=== PATIENT | male | born 1980 | race African-American/Black ===

== ENCOUNTER 2018-11-23 09:26 | Inpatient (IN) | payer SELFPAY | END 2018-11-23 23:00 | disposition left against medical advice (07) | LOC: YASAS 09:26 → Y3N 11:46 ==

== ENCOUNTER 2018-11-23 19:59 | Emergency (ER) | payer SELFPAY | END 2018-11-23 21:12 | disposition left against medical advice (07) | LOC: JER 19:59 ==

== ENCOUNTER 2021-05-31 13:32 | Inpatient (IN) | payer OTHER ==
[2021-05-31] MEDS ORDERED: MAG HYDROX/AL HYDROX/SIMETH 30 ML UNIT-DOSE CUP PO PRN (14:01)
[2021-05-31] MEDS ORDERED: IBUPROFEN 400 MG TABLET (FP) PO PRN (14:01)
[2021-05-31] MEDS ORDERED: MAGNESIUM CITRATE 300 ML BOTTLE PO PRN (14:01)
[2021-05-31] MEDS ORDERED: MAGNESIUM HYDROX 2400MG/30ML ORAL SUSPENSION 30 ML CUP PO PRN (14:01)
[2021-05-31] MEDS ORDERED: BISMUTH SUBSALICYLATE 524 MG/30 ML PO PRN (14:01)
[2021-05-31] MEDS ORDERED: ACETAMINOPHEN 325 MG TABLET (FP) PO PRN ×2 (14:01)
[2021-05-31] MEDS ORDERED: LOPERAMIDE HCL 2 MG CAPSULE PO PRN (14:01)
[2021-05-31] MEDS ORDERED: MENTHOL/PHENOL 1 EACH UD MM PRN (14:01)
[2021-05-31] MEDS ORDERED: ONDANSETRON *ODT* 4 MG TABLET SL PRN (14:01)
[2021-05-31 15:32] VITALS: BMI 21.8
[2021-05-31] MEDS ORDERED: methaDONE HCL 10 MG TABLET (FOR DETOX USE ONLY) PO ONE ×2 (16:15→22:00)
[2021-05-31] MEDS ORDERED: hydrOXYzine PAMOATE 25 MG CAPSULE (FP) PO SCH (18:00)
[2021-05-31] MEDS ORDERED: NITROGLYCERIN SUBLINGUAL 1/200 0.3 MG BTL SL PRN (21:29)
[2021-05-31] MEDS: hydrOXYzine PAMOATE 25 MG CAPSULE (FP) PO PRN (22:50)
[2021-05-31] MEDS: BACITRACIN 0.9 GM PACKET TP SCH (22:50)
[2021-05-31] MEDS: THIAMINE HCL 100 MG TABLET (FP) PO SCH (22:50)
[2021-05-31] MEDS: chlordiazePOXIDE HCL 25 MG CAPSULE PO SCH ×2 (22:50→23:24)
[2021-05-31] MEDS: METHOCARBAMOL 500 MG TABLET PO PRN (22:50)
[2021-05-31] MEDS: LIDOCAINE PATCH REMOVAL MC SCH (22:52)
[2021-05-31] MEDS: TOLNAFTATE 1% CREAM 15 GM TUBE TP SCH (22:53)
[2021-05-31] MEDS: NICOTINE 14 MG/24 HOURS TOPICAL PATCH TD SCH (22:53)
[2021-05-31] MEDS: MELATONIN 5 MG TABLETS PO SCH (22:53)
[2021-05-31] MEDS: PRENATAL VITAMINS W/ FOLIC ACID TABLET (FP) PO SCH (22:53)
[2021-06-01] MEDS: chlordiazePOXIDE HCL 25 MG CAPSULE PO PRN ×2 (00:57→19:04)
[2021-06-01] MEDS: NICOTINE 10 MG CARTRIDGE (INHALER) IH PRN ×2 (00:58→14:48)
[2021-06-01] MEDS: chlordiazePOXIDE HCL 25 MG CAPSULE PO SCH ×5 (01:25→23:00)
[2021-06-01] MEDS: cloNIDine HCL 0.1 MG TABLET PO PRN ×2 (02:40→16:55)
[2021-06-01] MEDS: METHOCARBAMOL 500 MG TABLET PO PRN ×3 (05:04→23:05)
[2021-06-01] MEDS: ACETAMINOPHEN 325 MG TABLET (FP) PO PRN ×2 (05:16→17:01)
[2021-06-01] MEDS: PRAMOXINE HCL 1% (SARNA SENSITIVE) 222 ML BOTTLE TP SCH ×3 (07:37→23:08)
[2021-06-01] MEDS ORDERED: methaDONE HCL 10 MG TABLET (FOR DETOX USE ONLY) ONE (09:28)
[2021-06-01] MEDS: PRENATAL VITAMINS W/ FOLIC ACID TABLET (FP) PO SCH (09:29)
[2021-06-01] MEDS: NICOTINE 14 MG/24 HOURS TOPICAL PATCH TD SCH (09:30)
[2021-06-01] MEDS: LIDOCAINE 5% TOPICAL PATCH TP SCH (09:30)
[2021-06-01] MEDS: hydrOXYzine PAMOATE 25 MG CAPSULE (FP) PO PRN (09:31)
[2021-06-01] MEDS: TOLNAFTATE 1% CREAM 15 GM TUBE TP SCH ×2 (09:32→23:08)
[2021-06-01] MEDS: hydrOXYzine PAMOATE 50 MG CAPSULE (FP) PO PRN ×2 (10:59→18:59)
[2021-06-01] MEDS ORDERED: METHOCARBAMOL 750 MG TABLET PO PRN (12:00)
[2021-06-01] MEDS: BACITRACIN 0.9 GM PACKET TP SCH ×2 (14:10→23:01)
[2021-06-01] MEDS ORDERED: traZODone HCL 50 MG TABLET (FP) PO PRN (21:00)
[2021-06-01] MEDS: LIDOCAINE PATCH REMOVAL MC SCH (23:02)
[2021-06-01] MEDS: MELATONIN 5 MG TABLETS PO SCH (23:04)
[2021-06-01] MEDS: THIAMINE HCL 100 MG TABLET (FP) PO SCH (23:09)
[2021-06-02] MEDS: chlordiazePOXIDE HCL 25 MG CAPSULE PO PRN (03:32)
[2021-06-02] MEDS: METHOCARBAMOL 500 MG TABLET PO PRN ×3 (03:33→18:28)
[2021-06-02] MEDS: chlordiazePOXIDE HCL 25 MG CAPSULE PO SCH ×4 (05:37→23:21)
[2021-06-02] MEDS: ACETAMINOPHEN 325 MG TABLET (FP) PO PRN (05:41)
[2021-06-02] MEDS ORDERED: methaDONE HCL 10 MG TABLET (FOR DETOX USE ONLY) PO ONE ×3 (10:00→10:28)
[2021-06-02] MEDS: hydrOXYzine PAMOATE 50 MG CAPSULE (FP) PO PRN (10:08)
[2021-06-02] MEDS: LIDOCAINE 5% TOPICAL PATCH TP SCH (10:08)
[2021-06-02] MEDS: PRENATAL VITAMINS W/ FOLIC ACID TABLET (FP) PO SCH (10:09)
[2021-06-02] MEDS: NICOTINE 14 MG/24 HOURS TOPICAL PATCH TD SCH (10:10)
[2021-06-02] MEDS: BACITRACIN 0.9 GM PACKET TP SCH ×2 (10:10→23:18)
[2021-06-02] MEDS: TOLNAFTATE 1% CREAM 15 GM TUBE TP SCH ×2 (11:58→23:23)
[2021-06-02] MEDS: PRAMOXINE HCL 1% (SARNA SENSITIVE) 222 ML BOTTLE TP SCH ×2 (11:58→23:22)
[2021-06-02 13:31] VITALS: TEMP 97.7
[2021-06-02 17:44] VITALS: PULSE 95
[2021-06-02] MEDS: NICOTINE 10 MG CARTRIDGE (INHALER) IH PRN (18:30)
[2021-06-02 19:06] VITALS: BP 128/80
[2021-06-02] MEDS: LIDOCAINE PATCH REMOVAL MC SCH (23:22)
[2021-06-02] MEDS: MELATONIN 5 MG TABLETS PO SCH (23:22)
[2021-06-02] MEDS: THIAMINE HCL 100 MG TABLET (FP) PO SCH (23:35)
[2021-06-03] MEDS ORDERED: chlordiazePOXIDE HCL 10 MG CAPSULE PO PRN
[2021-06-03] MEDS ORDERED: chlordiazePOXIDE HCL 10 MG CAPSULE PO SCH (05:00)
[2021-06-04] MEDS ORDERED: chlordiazePOXIDE HCL 10 MG CAPSULE PO SCH (05:00)
[2021-06-04] MEDS ORDERED: methaDONE HCL 10 MG TABLET (FOR DETOX USE ONLY) PO ONE (10:00)
[2021-06-05] MEDS ORDERED: chlordiazePOXIDE HCL 10 MG CAPSULE PO ONE (05:00)
== END 2021-06-02 21:25 | disposition short-term general hospital (02) | DRG 773 ==
LOC: YASAS 13:32 → Y6N 18:46
PROVIDERS: ADMIT Allergy & Immunology; ATTEND Allergy & Immunology
PROC: HZ2ZZZZ Detoxification Services for Substance Abuse Treatment (ICD-10-PCS; principal; 2021-05-31)
DX: F11.23 Opioid dependence with withdrawal (principal); F10.230 Alcohol dependence with withdrawal, uncomplicated; F14.20 Cocaine dependence, uncomplicated; F17.210 Nicotine dependence, cigarettes, uncomplicated; F20.9 Schizophrenia, unspecified; F32.A Depression, unspecified; K62.5 Hemorrhage of anus and rectum; M54.50 Low back pain, unspecified; G89.29 Other chronic pain; B35.3 Tinea pedis; Z95.5 Presence of coronary angioplasty implant and graft; Z79.02 Long term (current) use of antithrombotics/antiplatelets; Z88.6 Allergy status to analgesic agent; Z88.8 Allergy status to other drugs, medicaments and biological substances
CPT/HCPCS: 93005; 93010; C9803-CS; J0735; U0003; U0005

== ENCOUNTER 2021-06-03 09:24 | Emergency (ER) | payer OTHER | END 2021-06-03 10:14 | disposition left against medical advice (07) | LOC: JER 09:24 | DX: M54.50 Low back pain, unspecified (principal) | CPT/HCPCS: 99281-25 ==

== ENCOUNTER 2021-07-16 12:09 | Inpatient (IN) | payer OTHER ==
[2021-07-16] MEDS ORDERED: DICYCLOMINE HCL 10 MG CAPSULE PO PRN (12:44)
[2021-07-16] MEDS ORDERED: IBUPROFEN 400 MG TABLET (FP) PO PRN (12:44)
[2021-07-16] MEDS ORDERED: MAG HYDROX/AL HYDROX/SIMETH 30 ML UNIT-DOSE CUP PO PRN (12:44)
[2021-07-16] MEDS ORDERED: BISMUTH SUBSALICYLATE 524 MG/30 ML PO PRN (12:44)
[2021-07-16] MEDS ORDERED: ONDANSETRON *ODT* 4 MG TABLET SL PRN (12:44)
[2021-07-16] MEDS ORDERED: cloNIDine HCL 0.1 MG TABLET PO PRN (12:44)
[2021-07-16] MEDS ORDERED: chlordiazePOXIDE HCL 25 MG CAPSULE PO PRN (12:44)
[2021-07-16] MEDS ORDERED: ACETAMINOPHEN 325 MG TABLET (FP) PO PRN ×2 (12:44)
[2021-07-16] MEDS ORDERED: MAGNESIUM CITRATE 300 ML BOTTLE PO PRN (12:44)
[2021-07-16] MEDS ORDERED: NICOTINE 10 MG CARTRIDGE (INHALER) IH PRN (12:44)
[2021-07-16] MEDS ORDERED: LOPERAMIDE HCL 2 MG CAPSULE PO PRN (12:44)
[2021-07-16] MEDS ORDERED: MAGNESIUM HYDROX 2400MG/30ML ORAL SUSPENSION 30 ML CUP PO PRN (12:44)
[2021-07-16] MEDS ORDERED: BENZOCAINE/MENTHOL (CHLORASEPTIC ) LOZENGE MM PRN (12:44)
[2021-07-16] MEDS ORDERED: diazePAM 2 MG TABLET PO PRN (12:50)
[2021-07-16] MEDS ORDERED: methaDONE HCL 10 MG TABLET (FOR DETOX USE ONLY) PO ONE ×2 (13:30→16:00)
[2021-07-16 13:56] VITALS: BMI 23.1
[2021-07-16] MEDS ORDERED: hydrOXYzine PAMOATE 25 MG CAPSULE (FP) PO ONE (14:45)
[2021-07-16] MEDS: hydrOXYzine PAMOATE 25 MG CAPSULE (FP) PO SCH ×2 (14:48→17:03)
[2021-07-16 15:08] LABS: CALCIUM 8.7 mg/dL (8.5-10.1)
[2021-07-16 15:09] LABS: ALBUMIN 3.6 g/dl (3.4-5.0); BLOOD UREA NITROGEN 8.3 mg/dL (7-18)
[2021-07-16 15:13] LABS: BILIRUBIN,TOTAL 0.2 mg/dL (0.2-1); HEMATOCRIT 26.9 % (35.4-49); HEMOGLOBIN 8.3 GM/dL (11.7-16.9); MCH 21.9 pg (25.7-33.7); MEAN CELL VOLUME 70.5 fl (80-96); MEAN PLT VOLUME 7.6 fl (7.5-11.1); PLATELET COUNT 276 10^3/uL (134-434); RBC 3.81 M/mm3 (4.00-5.60); RDW 22.2 % (11.9-15.9); TOT PROT 7.5 g/dl (6.4-8.2); WHITE BLOOD COUNT 3.7 K/mm3 (4.0-10.0)
[2021-07-16] MEDS: SULFAMETHOXAZOLE/TRIMETHOPRIM 800MG/160MG D.S. TABLET PO SCH (15:34)
[2021-07-16] MEDS: METHOCARBAMOL 500 MG TABLET PO PRN ×2 (15:34→21:05)
[2021-07-16] MEDS: chlordiazePOXIDE HCL 25 MG CAPSULE PO PRN ×2 (15:38→21:05)
[2021-07-16] MEDS: NICOTINE 21 MG/24 HOURS TOPICAL PATCH TD SCH (15:44)
[2021-07-16] MEDS: BACLOFEN 10 MG TABLET (FP) PO SCH (15:45)
[2021-07-16] MEDS: PRENATAL VITAMINS W/ FOLIC ACID TABLET (FP) PO SCH (15:56)
[2021-07-16] MEDS: chlordiazePOXIDE HCL 25 MG CAPSULE PO SCH (17:03)
[2021-07-16] MEDS ORDERED: THIAMINE HCL 100 MG TABLET (FP) PO SCH (22:00)
[2021-07-16] MEDS ORDERED: MELATONIN 5 MG TABLETS PO SCH (22:00)
[2021-07-17] MEDS: hydrOXYzine PAMOATE 25 MG CAPSULE (FP) PO SCH ×4 (00:14→15:01)
[2021-07-17] MEDS: BACLOFEN 10 MG TABLET (FP) PO SCH ×3 (00:14→15:01)
[2021-07-17] MEDS: chlordiazePOXIDE HCL 25 MG CAPSULE PO SCH ×3 (00:15→10:06)
[2021-07-17] MEDS: chlordiazePOXIDE HCL 25 MG CAPSULE PO PRN ×2 (01:00→08:36)
[2021-07-17] MEDS: METHOCARBAMOL 500 MG TABLET PO PRN ×2 (04:04→10:05)
[2021-07-17] MEDS ORDERED: methaDONE HCL 10 MG TABLET (FOR DETOX USE ONLY) ONE (09:43)
[2021-07-17] MEDS: SULFAMETHOXAZOLE/TRIMETHOPRIM 800MG/160MG D.S. TABLET PO SCH (10:05)
[2021-07-17] MEDS: PRENATAL VITAMINS W/ FOLIC ACID TABLET (FP) PO SCH (10:10)
[2021-07-17] MEDS: NICOTINE 21 MG/24 HOURS TOPICAL PATCH TD SCH (10:12)
[2021-07-17 13:18] VITALS: BP 148/83; PULSE 87; TEMP 97
[2021-07-18] MEDS ORDERED: chlordiazePOXIDE HCL 25 MG CAPSULE PO SCH (05:00)
[2021-07-18] MEDS ORDERED: methaDONE HCL 10 MG TABLET (FOR DETOX USE ONLY) PO ONE (10:00)
[2021-07-19] MEDS ORDERED: chlordiazePOXIDE HCL 25 MG CAPSULE PO PRN
[2021-07-19 00:14] LABS: SARS-CoV-2 NAA Not Detected (Not Detected)
[2021-07-19] MEDS ORDERED: chlordiazePOXIDE HCL 10 MG CAPSULE PO SCH (05:00)
[2021-07-20] MEDS ORDERED: chlordiazePOXIDE HCL 10 MG CAPSULE PO SCH (05:00)
[2021-07-20] MEDS ORDERED: methaDONE HCL 10 MG TABLET (FOR DETOX USE ONLY) PO ONE (10:00)
[2021-07-21] MEDS ORDERED: chlordiazePOXIDE HCL 10 MG CAPSULE PO ONE (05:00)
== END 2021-07-17 14:15 | disposition left against medical advice (07) | DRG 770 ==
LOC: YASAS 12:09 → Y3N 14:58
PROVIDERS: ADMIT Allergy & Immunology; ATTEND Surgery
PROC: HZ2ZZZZ Detoxification Services for Substance Abuse Treatment (ICD-10-PCS; principal; 2021-07-16)
DX: F10.230 Alcohol dependence with withdrawal, uncomplicated (principal); F14.20 Cocaine dependence, uncomplicated; F17.210 Nicotine dependence, cigarettes, uncomplicated; D57.1 Sickle-cell disease without crisis; L03.90 Cellulitis, unspecified; Z86.69 Personal history of other diseases of the nervous system and sense organs; Z88.6 Allergy status to analgesic agent; Z88.8 Allergy status to other drugs, medicaments and biological substances; Z95.5 Presence of coronary angioplasty implant and graft
CPT/HCPCS: 36415; 80053; 85027; 86780; 87040; 87811; C9803-CS; J0475; J0735; U0003; U0005

== ENCOUNTER 2021-08-07 12:25 | Inpatient (IN) | payer OTHER ==
[2021-08-07] MEDS ORDERED: MAGNESIUM HYDROX 2400MG/30ML ORAL SUSPENSION 30 ML CUP PO PRN (15:02)
[2021-08-07] MEDS ORDERED: LOPERAMIDE HCL 2 MG CAPSULE PO PRN (15:02)
[2021-08-07] MEDS ORDERED: IBUPROFEN 600 MG TABLET (FP) PO PRN (15:02)
[2021-08-07] MEDS ORDERED: ONDANSETRON *ODT* 4 MG TABLET SL PRN (15:02)
[2021-08-07] MEDS ORDERED: NICOTINE POLACRILEX 4 MG GUM BUC PRN (15:02)
[2021-08-07] MEDS ORDERED: MAGNESIUM CITRATE 300 ML BOTTLE PO PRN (15:02)
[2021-08-07] MEDS ORDERED: IBUPROFEN 400 MG TABLET (FP) PO PRN (15:02)
[2021-08-07] MEDS ORDERED: BISMUTH SUBSALICYLATE 524 MG/30 ML PO PRN (15:02)
[2021-08-07] MEDS ORDERED: NICOTINE 10 MG CARTRIDGE (INHALER) IH PRN (15:02)
[2021-08-07] MEDS ORDERED: BENZOCAINE/MENTHOL (CHLORASEPTIC ) LOZENGE MM PRN (15:02)
[2021-08-07] MEDS ORDERED: ACETAMINOPHEN 325 MG TABLET (FP) PO PRN ×2 (15:02)
[2021-08-07] MEDS ORDERED: DICYCLOMINE HCL 10 MG CAPSULE PO PRN (15:02)
[2021-08-07] MEDS ORDERED: MAG HYDROX/AL HYDROX/SIMETH 30 ML UNIT-DOSE CUP PO PRN (15:02)
[2021-08-07] MEDS ORDERED: diazePAM 5 MG TABLET PO PRN (15:17)
[2021-08-07 15:34] VITALS: BMI 22.6
[2021-08-07] MEDS ORDERED: chlordiazePOXIDE HCL 25 MG CAPSULE PO PRN (16:56)
[2021-08-07] MEDS ORDERED: cloNIDine HCL 0.1 MG TABLET PO PRN (16:57)
[2021-08-07] MEDS ORDERED: methaDONE HCL 10 MG TABLET (FOR DETOX USE ONLY) PO ONE (16:57)
[2021-08-07] MEDS ORDERED: hydrOXYzine PAMOATE 25 MG CAPSULE (FP) PO SCH (18:00)
[2021-08-07] MEDS: METHOCARBAMOL 500 MG TABLET PO PRN (18:20)
[2021-08-07] MEDS: NICOTINE 21 MG/24 HOURS TOPICAL PATCH TD SCH (19:08)
[2021-08-07] MEDS ORDERED: THIAMINE HCL 100 MG TABLET (FP) PO SCH (22:00)
[2021-08-07] MEDS ORDERED: MELATONIN 5 MG TABLETS PO SCH (22:00)
[2021-08-07] MEDS: chlordiazePOXIDE HCL 25 MG CAPSULE PO SCH (22:18)
[2021-08-07] MEDS ORDERED: QUEtiapine FUMARATE 25 MG TABLET PO ONE (23:51)
[2021-08-08] MEDS: METHOCARBAMOL 500 MG TABLET PO PRN ×2 (00:08→05:36)
[2021-08-08] MEDS: chlordiazePOXIDE HCL 25 MG CAPSULE PO SCH ×2 (05:34→10:01)
[2021-08-08 07:20] VITALS: PULSE 73
[2021-08-08] MEDS ORDERED: methaDONE HCL 10 MG TABLET (FOR DETOX USE ONLY) ONE (09:13)
[2021-08-08] MEDS: NICOTINE 21 MG/24 HOURS TOPICAL PATCH TD SCH (09:22)
[2021-08-08 09:24] VITALS: BP 114/69; TEMP 96.9
[2021-08-08] MEDS ORDERED: METHOCARBAMOL 750 MG TAB PO PRN (09:26)
[2021-08-08] MEDS ORDERED: PRENATAL VITAMINS W/ FOLIC ACID TABLET (FP) PO SCH (10:00)
[2021-08-09] MEDS ORDERED: chlordiazePOXIDE HCL 25 MG CAPSULE PO SCH (05:00)
[2021-08-09] MEDS ORDERED: methaDONE HCL 10 MG TABLET (FOR DETOX USE ONLY) PO ONE ×2 (06:00→10:00)
[2021-08-10] MEDS ORDERED: chlordiazePOXIDE HCL 10 MG CAPSULE PO PRN
[2021-08-10] MEDS ORDERED: chlordiazePOXIDE HCL 10 MG CAPSULE PO SCH (05:00)
[2021-08-11] MEDS ORDERED: chlordiazePOXIDE HCL 10 MG CAPSULE PO SCH (05:00)
[2021-08-11] MEDS ORDERED: methaDONE HCL 10 MG TABLET (FOR DETOX USE ONLY) PO ONE ×2 (06:00→10:00)
[2021-08-12] MEDS ORDERED: chlordiazePOXIDE HCL 10 MG CAPSULE PO ONE (05:00)
== END 2021-08-08 11:05 | disposition other institution (70) | DRG 773 ==
LOC: YASAS 12:25 → Y6N 16:08
PROVIDERS: ADMIT Allergy & Immunology; ATTEND Surgery
PROC: HZ2ZZZZ Detoxification Services for Substance Abuse Treatment (ICD-10-PCS; principal; 2021-08-07)
DX: F11.23 Opioid dependence with withdrawal (principal); F13.230 Sedative, hypnotic or anxiolytic dependence with withdrawal, uncomplicated; F11.20 Opioid dependence, uncomplicated; F14.10 Cocaine abuse, uncomplicated; F17.210 Nicotine dependence, cigarettes, uncomplicated; F20.9 Schizophrenia, unspecified; F41.9 Anxiety disorder, unspecified; F32.A Depression, unspecified; Z95.5 Presence of coronary angioplasty implant and graft; Z85.118 Personal history of other malignant neoplasm of bronchus and lung
CPT/HCPCS: C9803-CS; J0735; U0003; U0005

== ENCOUNTER 2021-08-15 10:30 | Inpatient (IN) | payer OTHER ==
[2021-08-15 10:52] VITALS: BMI 23.1
[2021-08-15] MEDS ORDERED: LOPERAMIDE HCL 2 MG CAPSULE PO PRN (11:20)
[2021-08-15] MEDS ORDERED: DICYCLOMINE HCL 10 MG CAPSULE PO PRN (11:20)
[2021-08-15] MEDS ORDERED: MAGNESIUM CITRATE 300 ML BOTTLE PO PRN (11:20)
[2021-08-15] MEDS ORDERED: MAG HYDROX/AL HYDROX/SIMETH 30 ML UNIT-DOSE CUP PO PRN (11:20)
[2021-08-15] MEDS ORDERED: ACETAMINOPHEN 325 MG TABLET (FP) PO PRN ×2 (11:20)
[2021-08-15] MEDS ORDERED: BENZOCAINE/MENTHOL (CHLORASEPTIC ) LOZENGE MM PRN (11:20)
[2021-08-15] MEDS ORDERED: BISMUTH SUBSALICYLATE 524 MG/30 ML PO PRN (11:20)
[2021-08-15] MEDS ORDERED: MAGNESIUM HYDROX 2400MG/30ML ORAL SUSPENSION 30 ML CUP PO PRN (11:20)
[2021-08-15] MEDS ORDERED: NALOXONE HCL 0.4 MG/ML VIAL IM PRN (11:20)
[2021-08-15] MEDS ORDERED: methaDONE HCL 10 MG TABLET (FOR DETOX USE ONLY) PO ONE ×2 (11:20→16:30)
[2021-08-15] MEDS ORDERED: NICOTINE 10 MG CARTRIDGE (INHALER) IH PRN (11:20)
[2021-08-15] MEDS ORDERED: cloNIDine HCL 0.1 MG TABLET PO PRN (15:59)
[2021-08-15] MEDS: METHOCARBAMOL 500 MG TABLET PO PRN (16:42)
[2021-08-15] MEDS: chlordiazePOXIDE HCL 25 MG CAPSULE PO SCH ×2 (16:45→22:18)
[2021-08-15] MEDS ORDERED: GABAPENTIN 300 MG CAPSULE PO ONE (18:05)
[2021-08-15] MEDS: NICOTINE 7 MG/24 HOURS TOPICAL PATCH TD SCH (18:27)
[2021-08-15] MEDS: cloNIDine HCL 0.1 MG TABLET PO PRN (20:00)
[2021-08-15] MEDS: chlordiazePOXIDE HCL 25 MG CAPSULE PO PRN (20:00)
[2021-08-15] MEDS ORDERED: MELATONIN 5 MG TABLETS PO SCH (22:00)
[2021-08-15] MEDS: QUEtiapine FUMARATE 300 MG TABLET PO SCH (22:17)
[2021-08-15] MEDS: THIAMINE HCL 100 MG TABLET (FP) PO SCH (22:18)
[2021-08-16] MEDS: chlordiazePOXIDE HCL 25 MG CAPSULE PO SCH ×4 (05:46→23:06)
[2021-08-16] MEDS ORDERED: methaDONE HCL 10 MG TABLET (FOR DETOX USE ONLY) ONE (09:50)
[2021-08-16] MEDS: PRENATAL VITAMINS W/ FOLIC ACID TABLET (FP) PO SCH (10:27)
[2021-08-16] MEDS: METHOCARBAMOL 500 MG TABLET PO PRN ×2 (10:27→17:27)
[2021-08-16] MEDS: GABAPENTIN 300 MG CAPSULE PO SCH ×2 (10:28→23:09)
[2021-08-16] MEDS: NICOTINE 7 MG/24 HOURS TOPICAL PATCH TD SCH (10:30)
[2021-08-16] MEDS: hydrOXYzine PAMOATE 25 MG CAPSULE (FP) PO SCH ×3 (11:11→23:07)
[2021-08-16] MEDS: chlordiazePOXIDE HCL 25 MG CAPSULE PO PRN (12:45)
[2021-08-16] MEDS: THIAMINE HCL 100 MG TABLET (FP) PO SCH (23:07)
[2021-08-16] MEDS: QUEtiapine FUMARATE 300 MG TABLET PO SCH (23:09)
[2021-08-16] MEDS: QUEtiapine FUMARATE 100 MG TABLET (FP) PO SCH (23:09)
[2021-08-17] MEDS: chlordiazePOXIDE HCL 25 MG CAPSULE PO SCH ×4 (05:48→22:28)
[2021-08-17] MEDS: METHOCARBAMOL 500 MG TABLET PO PRN ×3 (05:49→22:29)
[2021-08-17] MEDS: hydrOXYzine PAMOATE 25 MG CAPSULE (FP) PO SCH ×6 (06:51→23:40)
[2021-08-17] MEDS: chlordiazePOXIDE HCL 25 MG CAPSULE PO PRN ×4 (08:37→19:46)
[2021-08-17] MEDS ORDERED: methaDONE HCL 10 MG TABLET (FOR DETOX USE ONLY) PO ONE ×2 (10:00)
[2021-08-17] MEDS: GABAPENTIN 300 MG CAPSULE PO SCH ×2 (10:38→22:29)
[2021-08-17] MEDS: PRENATAL VITAMINS W/ FOLIC ACID TABLET (FP) PO SCH (10:38)
[2021-08-17] MEDS: NICOTINE 7 MG/24 HOURS TOPICAL PATCH TD SCH (10:39)
[2021-08-17] MEDS: cloNIDine HCL 0.1 MG TABLET PO PRN (17:53)
[2021-08-17] MEDS: THIAMINE HCL 100 MG TABLET (FP) PO SCH (22:28)
[2021-08-17] MEDS: QUEtiapine FUMARATE 100 MG TABLET (FP) PO SCH (22:29)
[2021-08-18] MEDS ORDERED: chlordiazePOXIDE HCL 10 MG CAPSULE PO PRN
[2021-08-18] MEDS: hydrOXYzine PAMOATE 25 MG CAPSULE (FP) PO SCH ×3 (03:25→10:07)
[2021-08-18] MEDS ORDERED: chlordiazePOXIDE HCL 10 MG CAPSULE PO SCH (05:00)
[2021-08-18] MEDS: METHOCARBAMOL 500 MG TABLET PO PRN ×2 (05:51→13:11)
[2021-08-18] MEDS ORDERED: methaDONE HCL 10 MG TABLET (FOR DETOX USE ONLY) ONE (09:43)
[2021-08-18] MEDS: PRENATAL VITAMINS W/ FOLIC ACID TABLET (FP) PO SCH (10:07)
[2021-08-18] MEDS: NICOTINE 7 MG/24 HOURS TOPICAL PATCH TD SCH (10:07)
[2021-08-18] MEDS: GABAPENTIN 300 MG CAPSULE PO SCH (10:07)
[2021-08-18] MEDS ORDERED: diazePAM 5 MG TABLET PO PRN (11:03)
[2021-08-18] MEDS ORDERED: diazePAM 5 MG TABLET PO SCH (14:00)
[2021-08-18 14:16] VITALS: BP 147/92; PULSE 95; TEMP 98
[2021-08-19] MEDS ORDERED: diazePAM 5 MG TABLET PO SCH (05:00)
[2021-08-19] MEDS ORDERED: chlordiazePOXIDE HCL 10 MG CAPSULE PO SCH (05:00)
[2021-08-19] MEDS ORDERED: methaDONE HCL 10 MG TABLET (FOR DETOX USE ONLY) PO ONE ×2 (10:00)
[2021-08-20] MEDS ORDERED: chlordiazePOXIDE HCL 10 MG CAPSULE PO ONE (05:00)
[2021-08-20] MEDS ORDERED: diazePAM 5 MG TABLET PO ONE (05:00)
== END 2021-08-18 14:25 | disposition left against medical advice (07) | DRG 770 ==
LOC: YASAS 10:30 → Y3N 14:18 → Y6N 16:07
PROVIDERS: ADMIT Allergy & Immunology; ATTEND Surgery
PROC: HZ2ZZZZ Detoxification Services for Substance Abuse Treatment (ICD-10-PCS; principal; 2021-08-15)
DX: F11.23 Opioid dependence with withdrawal (principal); F10.230 Alcohol dependence with withdrawal, uncomplicated; F14.20 Cocaine dependence, uncomplicated; F17.213 Nicotine dependence, cigarettes, with withdrawal; F19.282 Other psychoactive substance dependence with psychoactive substance-induced sleep disorder; F19.24 Other psychoactive substance dependence with psychoactive substance-induced mood disorder; F20.0 Paranoid schizophrenia; F41.9 Anxiety disorder, unspecified; D57.1 Sickle-cell disease without crisis; Z99.89 Dependence on other enabling machines and devices; Z88.8 Allergy status to other drugs, medicaments and biological substances; Z88.6 Allergy status to analgesic agent; Z56.0 Unemployment, unspecified; Z59.00 Homelessness unspecified
CPT/HCPCS: C9803-CS; J0735; U0003; U0005

== ENCOUNTER 2021-09-30 14:36 | Inpatient (IN) | payer OTHER ==
[2021-09-30 16:53] VITALS: BMI 22.4
[2021-09-30] MEDS ORDERED: ONDANSETRON *ODT* 4 MG TABLET SL PRN (20:23)
[2021-09-30] MEDS ORDERED: MAG HYDROX/AL HYDROX/SIMETH 30 ML UNIT-DOSE CUP PO PRN (20:23)
[2021-09-30] MEDS ORDERED: IBUPROFEN 600 MG TABLET (FP) PO PRN (20:23)
[2021-09-30] MEDS ORDERED: NICOTINE 10 MG CARTRIDGE (INHALER) IH PRN (20:23)
[2021-09-30] MEDS ORDERED: BENZOCAINE/MENTHOL (CHLORASEPTIC ) LOZENGE MM PRN (20:23)
[2021-09-30] MEDS ORDERED: MAGNESIUM CITRATE 300 ML BOTTLE PO PRN (20:23)
[2021-09-30] MEDS ORDERED: IBUPROFEN 400 MG TABLET (FP) PO PRN (20:23)
[2021-09-30] MEDS ORDERED: ACETAMINOPHEN 325 MG TABLET (FP) PO PRN ×2 (20:23)
[2021-09-30] MEDS ORDERED: diazePAM 5 MG TABLET PO PRN (20:23)
[2021-09-30] MEDS ORDERED: MAGNESIUM HYDROX 2400MG/30ML ORAL SUSPENSION 30 ML CUP PO PRN (20:23)
[2021-09-30] MEDS ORDERED: cloNIDine HCL 0.1 MG TABLET PO PRN (20:23)
[2021-09-30] MEDS ORDERED: LOPERAMIDE HCL 2 MG CAPSULE PO PRN (20:23)
[2021-09-30] MEDS ORDERED: methaDONE HCL 10 MG TABLET (FOR DETOX USE ONLY) PO ONE (20:23)
[2021-09-30] MEDS ORDERED: DICYCLOMINE HCL 10 MG CAPSULE PO PRN (20:23)
[2021-09-30] MEDS ORDERED: NALOXONE (NARCAN) HCL 4 MG/0.1 ML SPRAY NS PRN (20:30)
[2021-09-30] MEDS ORDERED: THIAMINE HCL 100 MG TABLET (FP) PO SCH (22:00)
[2021-09-30] MEDS ORDERED: QUEtiapine FUMARATE 300 MG TABLET PO SCH (22:00)
[2021-09-30] MEDS ORDERED: MELATONIN 5 MG TABLETS PO SCH (22:00)
[2021-09-30] MEDS: diazePAM 5 MG TABLET PO SCH (22:53)
[2021-09-30] MEDS: hydrOXYzine PAMOATE 25 MG CAPSULE (FP) PO SCH (22:54)
[2021-09-30] MEDS: METHOCARBAMOL 500 MG TABLET PO PRN (22:56)
[2021-09-30] MEDS: BISMUTH SUBSALICYLATE 524 MG/30 ML PO PRN (22:58)
[2021-09-30] MEDS: PRENATAL VITAMINS W/ FOLIC ACID TABLET (FP) PO SCH (23:22)
[2021-10-01] MEDS: diazePAM 5 MG TABLET PO SCH ×2 (05:39→10:37)
[2021-10-01] MEDS: hydrOXYzine PAMOATE 25 MG CAPSULE (FP) PO SCH ×2 (05:39→10:37)
[2021-10-01] MEDS: METHOCARBAMOL 500 MG TABLET PO PRN (05:39)
[2021-10-01] MEDS: BISMUTH SUBSALICYLATE 524 MG/30 ML PO PRN (06:03)
[2021-10-01 06:34] VITALS: RESP 17; TEMP 98
[2021-10-01] MEDS ORDERED: methaDONE HCL 10 MG TABLET (FOR DETOX USE ONLY) ONE (09:08)
[2021-10-01] MEDS ORDERED: NICOTINE 7 MG/24 HOURS TOPICAL PATCH TD SCH (10:00)
[2021-10-01 10:24] VITALS: BP 125/69; PULSE 69
[2021-10-01] MEDS: PRENATAL VITAMINS W/ FOLIC ACID TABLET (FP) PO SCH (10:37)
[2021-10-01] MEDS ORDERED: GABAPENTIN 300 MG CAPSULE PO SCH (14:00)
[2021-10-02] MEDS ORDERED: diazePAM 5 MG TABLET PO SCH (06:00)
[2021-10-02] MEDS ORDERED: methaDONE HCL 10 MG TABLET (FOR DETOX USE ONLY) PO ONE (10:00)
[2021-10-03] MEDS ORDERED: diazePAM 5 MG TABLET PO SCH (06:00)
[2021-10-04] MEDS ORDERED: diazePAM 5 MG TABLET PO ONE (06:00)
[2021-10-04] MEDS ORDERED: methaDONE HCL 10 MG TABLET (FOR DETOX USE ONLY) PO ONE (10:00)
== END 2021-10-01 11:00 | disposition left against medical advice (07) | DRG 773 ==
LOC: YASAS 14:36 → Y6N 22:24
PROVIDERS: ADMIT Allergy & Immunology; ATTEND Surgery
PROC: HZ2ZZZZ Detoxification Services for Substance Abuse Treatment (ICD-10-PCS; principal; 2021-09-30)
DX: F11.23 Opioid dependence with withdrawal (principal); F10.230 Alcohol dependence with withdrawal, uncomplicated; F14.20 Cocaine dependence, uncomplicated; F17.210 Nicotine dependence, cigarettes, uncomplicated; F19.282 Other psychoactive substance dependence with psychoactive substance-induced sleep disorder; F41.8 Other specified anxiety disorders; D57.1 Sickle-cell disease without crisis; Z99.89 Dependence on other enabling machines and devices; Z88.8 Allergy status to other drugs, medicaments and biological substances; Z88.6 Allergy status to analgesic agent; F91.8 Other conduct disorders; Z91.19 Patient's noncompliance with other medical treatment and regimen
CPT/HCPCS: C9803-CS; Q0162; U0003; U0005

== ENCOUNTER 2021-11-22 13:14 | Inpatient (IN) | payer OTHER ==
[2021-11-22 14:48] VITALS: BMI 21.8
[2021-11-22] MEDS ORDERED: IBUPROFEN 400 MG TABLET (FP) PO PRN (19:43)
[2021-11-22] MEDS ORDERED: BISMUTH SUBSALICYLATE 524 MG/30 ML PO PRN (19:43)
[2021-11-22] MEDS ORDERED: IBUPROFEN 600 MG TABLET (FP) PO PRN (19:43)
[2021-11-22] MEDS ORDERED: NICOTINE POLACRILEX 2 MG GUM BUC PRN (19:43)
[2021-11-22] MEDS ORDERED: ONDANSETRON *ODT* 4 MG TABLET SL PRN (19:43)
[2021-11-22] MEDS ORDERED: LOPERAMIDE HCL 2 MG CAPSULE PO PRN (19:43)
[2021-11-22] MEDS ORDERED: MAGNESIUM CITRATE 300 ML BOTTLE PO PRN (19:43)
[2021-11-22] MEDS ORDERED: MAG HYDROX/AL HYDROX/SIMETH 30 ML UNIT-DOSE CUP PO PRN (19:43)
[2021-11-22] MEDS ORDERED: ACETAMINOPHEN 325 MG TABLET (FP) PO PRN ×2 (19:43)
[2021-11-22] MEDS ORDERED: BENZOCAINE/MENTHOL (CHLORASEPTIC ) LOZENGE MM PRN (19:43)
[2021-11-22] MEDS ORDERED: NALOXONE HCL (KLOXXADO) 8 MG SPRAY NS PRN (19:43)
[2021-11-22] MEDS ORDERED: DICYCLOMINE HCL 10 MG CAPSULE PO PRN (19:43)
[2021-11-22] MEDS ORDERED: MAGNESIUM HYDROX 2400MG/30ML ORAL SUSPENSION 30 ML CUP PO PRN (19:43)
[2021-11-22] MEDS ORDERED: chlordiazePOXIDE HCL 25 MG CAPSULE PO PRN (19:43)
[2021-11-22] MEDS: METHOCARBAMOL 500 MG TABLET PO PRN (21:01)
[2021-11-22] MEDS: chlordiazePOXIDE HCL 25 MG CAPSULE PO SCH (22:51)
[2021-11-22] MEDS: THIAMINE HCL 100 MG TABLET (FP) PO SCH (22:51)
[2021-11-22] MEDS: MELATONIN 5 MG TABLETS PO SCH (22:51)
[2021-11-23] MEDS: chlordiazePOXIDE HCL 25 MG CAPSULE PO SCH ×4 (05:12→22:35)
[2021-11-23] MEDS: METHOCARBAMOL 500 MG TABLET PO PRN (05:14)
[2021-11-23] MEDS: NICOTINE 21 MG/24 HOURS TOPICAL PATCH TD SCH (10:07)
[2021-11-23] MEDS: PRENATAL VITAMINS W/ FOLIC ACID TABLET (FP) PO SCH (10:08)
[2021-11-23] MEDS: hydrOXYzine PAMOATE 25 MG CAPSULE (FP) PO PRN ×2 (11:24→17:10)
[2021-11-23] MEDS: METHOCARBAMOL 750 MG TABLET PO SCH ×2 (11:24→22:35)
[2021-11-23] MEDS: GABAPENTIN 300 MG CAPSULE PO SCH ×2 (13:46→22:35)
[2021-11-23] MEDS ORDERED: QUEtiapine FUMARATE 200 MG TABLET PO SCH (22:00)
[2021-11-23] MEDS: MELATONIN 5 MG TABLETS PO SCH (22:35)
[2021-11-23] MEDS: THIAMINE HCL 100 MG TABLET (FP) PO SCH (22:35)
[2021-11-24] MEDS: chlordiazePOXIDE HCL 25 MG CAPSULE PO SCH ×2 (05:34→10:47)
[2021-11-24] MEDS: GABAPENTIN 300 MG CAPSULE PO SCH ×2 (05:34→13:23)
[2021-11-24] MEDS: PRENATAL VITAMINS W/ FOLIC ACID TABLET (FP) PO SCH (10:47)
[2021-11-24] MEDS: NICOTINE 21 MG/24 HOURS TOPICAL PATCH TD SCH (10:47)
[2021-11-24] MEDS: METHOCARBAMOL 750 MG TABLET PO SCH ×2 (10:47→13:27)
[2021-11-24 13:24] VITALS: BP 120/67; PULSE 101; RESP 16; TEMP 98
[2021-11-24] MEDS: hydrOXYzine PAMOATE 25 MG CAPSULE (FP) PO PRN (13:24)
[2021-11-25] MEDS ORDERED: chlordiazePOXIDE HCL 10 MG CAPSULE PO PRN
[2021-11-25] MEDS ORDERED: chlordiazePOXIDE HCL 10 MG CAPSULE PO SCH (05:00)
[2021-11-26] MEDS ORDERED: chlordiazePOXIDE HCL 10 MG CAPSULE PO SCH (05:00)
[2021-11-27] MEDS ORDERED: chlordiazePOXIDE HCL 10 MG CAPSULE PO ONE (05:00)
== END 2021-11-24 16:15 | disposition home or self-care (01) | DRG 774 ==
LOC: YASAS 13:14 → Y3N 19:57
PROVIDERS: ADMIT Allergy & Immunology; ATTEND Surgery
PROC: HZ2ZZZZ Detoxification Services for Substance Abuse Treatment (ICD-10-PCS; principal; 2021-11-22)
DX: F10.230 Alcohol dependence with withdrawal, uncomplicated (principal); F14.20 Cocaine dependence, uncomplicated; F17.210 Nicotine dependence, cigarettes, uncomplicated; F20.9 Schizophrenia, unspecified; F31.9 Bipolar disorder, unspecified; F19.282 Other psychoactive substance dependence with psychoactive substance-induced sleep disorder; D57.1 Sickle-cell disease without crisis; I25.2 Old myocardial infarction; Z95.5 Presence of coronary angioplasty implant and graft; Z86.69 Personal history of other diseases of the nervous system and sense organs; Z99.89 Dependence on other enabling machines and devices; Z88.6 Allergy status to analgesic agent; Z88.8 Allergy status to other drugs, medicaments and biological substances
CPT/HCPCS: C9803-CS; U0003; U0005

== ENCOUNTER 2022-02-06 10:51 | Inpatient (IN) | payer OTHER ==
[2022-02-06 11:49] VITALS: BMI 22.6
[2022-02-06] MEDS ORDERED: hydrOXYzine PAMOATE 25 MG CAPSULE (FP) PO PRN (15:11)
[2022-02-06] MEDS ORDERED: chlordiazePOXIDE HCL 25 MG CAPSULE PO PRN (15:11)
[2022-02-06] MEDS ORDERED: ONDANSETRON *ODT* 4 MG TABLET SL PRN (15:11)
[2022-02-06] MEDS ORDERED: methaDONE HCL 10 MG TABLET (FOR DETOX USE ONLY) PO ONE (15:11)
[2022-02-06] MEDS ORDERED: MAG HYDROX/AL HYDROX/SIMETH 30 ML UNIT-DOSE CUP PO PRN (15:11)
[2022-02-06] MEDS ORDERED: NALOXONE HCL (KLOXXADO) 8 MG SPRAY NS PRN (15:11)
[2022-02-06] MEDS ORDERED: NICOTINE POLACRILEX 4 MG GUM BUC PRN (15:11)
[2022-02-06] MEDS ORDERED: NICOTINE 10 MG CARTRIDGE (INHALER) IH PRN (15:11)
[2022-02-06] MEDS ORDERED: IBUPROFEN 400 MG TABLET (FP) PO PRN (15:11)
[2022-02-06] MEDS ORDERED: LOPERAMIDE HCL 2 MG CAPSULE PO PRN (15:11)
[2022-02-06] MEDS ORDERED: ACETAMINOPHEN 325 MG TABLET (FP) PO PRN ×2 (15:11)
[2022-02-06] MEDS ORDERED: cloNIDine HCL 0.1 MG TABLET PO PRN (15:11)
[2022-02-06] MEDS ORDERED: BISMUTH SUBSALICYLATE 524 MG/30 ML PO PRN (15:11)
[2022-02-06] MEDS ORDERED: DICYCLOMINE HCL 10 MG CAPSULE PO PRN (15:11)
[2022-02-06] MEDS ORDERED: POLYETHYLENE GLYCOL (HEALTHYLAX) 3350 17 GM PACKET PO PRN (15:11)
[2022-02-06] MEDS ORDERED: IBUPROFEN 600 MG TABLET (FP) PO PRN (15:11)
[2022-02-06] MEDS ORDERED: MAGNESIUM HYDROX 2400MG/30ML ORAL SUSPENSION 30 ML CUP PO PRN (15:11)
[2022-02-06] MEDS ORDERED: BENZOCAINE/MENTHOL (CHLORASEPTIC ) LOZENGE MM PRN (15:11)
[2022-02-06] MEDS: METHOCARBAMOL 500 MG TABLET PO PRN ×2 (15:48→20:48)
[2022-02-06] MEDS: chlordiazePOXIDE HCL 25 MG CAPSULE PO SCH ×2 (17:19→22:40)
[2022-02-06] MEDS ORDERED: MELATONIN 5 MG TABLETS PO SCH (22:00)
[2022-02-06] MEDS ORDERED: GABAPENTIN 300 MG CAPSULE PO SCH ×2 (22:00)
[2022-02-06] MEDS ORDERED: THIAMINE HCL 100 MG TABLET (FP) PO SCH (22:00)
[2022-02-06] MEDS ORDERED: QUEtiapine FUMARATE 200 MG TABLET PO SCH ×2 (22:00)
[2022-02-07] MEDS: chlordiazePOXIDE HCL 25 MG CAPSULE PO SCH ×2 (06:11→10:09)
[2022-02-07 06:15] VITALS: RESP 18; TEMP 97.6
[2022-02-07] MEDS ORDERED: NICOTINE 21 MG/24 HOURS TOPICAL PATCH TD SCH (10:00)
[2022-02-07] MEDS ORDERED: PRENATAL VITAMINS W/ FOLIC ACID TABLET (FP) PO SCH (10:00)
[2022-02-07] MEDS: METHOCARBAMOL 500 MG TABLET PO PRN (10:08)
[2022-02-07 13:55] VITALS: BP 144/80; PULSE 82
[2022-02-08] MEDS ORDERED: chlordiazePOXIDE HCL 25 MG CAPSULE PO SCH (05:00)
[2022-02-08] MEDS ORDERED: methaDONE HCL 10 MG TABLET (FOR DETOX USE ONLY) PO ONE (10:00)
[2022-02-09] MEDS ORDERED: chlordiazePOXIDE HCL 10 MG CAPSULE PO PRN
[2022-02-09] MEDS ORDERED: chlordiazePOXIDE HCL 10 MG CAPSULE PO SCH (05:00)
[2022-02-10] MEDS ORDERED: chlordiazePOXIDE HCL 10 MG CAPSULE PO SCH (05:00)
[2022-02-10] MEDS ORDERED: methaDONE HCL 10 MG TABLET (FOR DETOX USE ONLY) PO ONE (10:00)
[2022-02-11] MEDS ORDERED: chlordiazePOXIDE HCL 10 MG CAPSULE PO ONE (05:00)
== END 2022-02-07 15:26 | disposition left against medical advice (07) | DRG 770 ==
LOC: YASAS 10:51 → Y6N 14:47
PROVIDERS: ADMIT Allergy & Immunology; ATTEND Surgery
DX: F11.23 Opioid dependence with withdrawal (principal); F10.230 Alcohol dependence with withdrawal, uncomplicated; F14.20 Cocaine dependence, uncomplicated; F12.20 Cannabis dependence, uncomplicated; F17.210 Nicotine dependence, cigarettes, uncomplicated; F20.9 Schizophrenia, unspecified; F19.282 Other psychoactive substance dependence with psychoactive substance-induced sleep disorder; F19.24 Other psychoactive substance dependence with psychoactive substance-induced mood disorder; F41.9 Anxiety disorder, unspecified; F32.A Depression, unspecified; D57.1 Sickle-cell disease without crisis; I25.2 Old myocardial infarction; Z95.5 Presence of coronary angioplasty implant and graft; Z86.69 Personal history of other diseases of the nervous system and sense organs; Z99.89 Dependence on other enabling machines and devices; Z56.0 Unemployment, unspecified; Z59.00 Homelessness unspecified; Z88.8 Allergy status to other drugs, medicaments and biological substances; Z91.198 Patient's noncompliance with other medical treatment and regimen for other reason; F91.8 Other conduct disorders
CPT/HCPCS: C9803-CS; U0003; U0005